=== PATIENT | male | born 1945 | race Caucasian/White ===

== ENCOUNTER 2016-12-04 13:12 | Outpatient (CLI) | payer MEDICARE, OTHER | END 2016-12-04 13:13 | disposition home or self-care (01) | LOC: SC 13:12 | PROVIDERS: ATTEND Nurse Practitioner Family | DX: G47.33 Obstructive sleep apnea (adult) (pediatric) (principal) | CPT/HCPCS: 99214; G0463; 99212 ==

== ENCOUNTER 2017-12-02 13:22 | Outpatient (CLI) | payer MEDICARE, OTHER | END 2017-12-02 13:23 | disposition home or self-care (01) | LOC: SC 13:22 | PROVIDERS: ATTEND Internal Medicine Pulmonary Disease | DX: G47.33 Obstructive sleep apnea (adult) (pediatric) (principal) | CPT/HCPCS: 99213; G0463; 99212 ==